=== PATIENT | female | born 1955 | race Caucasian/White ===

== ENCOUNTER 2024-11-28 12:26 | Emergency (ER) | payer MEDICARE, MEDICAID ==
[~2024-11-28] VITALS: Ht 175.3 cm; Wt 73.0 kg
[2024-11-28 12:48] VITALS: TEMP 37.1; O2SAT 99
[2024-11-28] MEDS ORDERED: LIDOCAINE HCL/EPINEPHRINE 1%-EPI 1:100,000 10ML VIAL INFIL ONE (13:30)
[2024-11-28] MEDS: HYDROCODONE/ACETAMINOPHEN 10/325MG TABLET PO ONE (14:06)
[2024-11-28 17:43] VITALS: BP 155/88; PULSE 100; RESP 18; O2SAT 97
== END 2024-11-28 17:50 | disposition home or self-care (01) ==
LOC: ER 12:26
DX: S01.111A Laceration without foreign body of right eyelid and periocular area, initial encounter (principal); S01.81XA Laceration without foreign body of other part of head, initial encounter; S06.0XAA Concussion with loss of consciousness status unknown, initial encounter; M41.9 Scoliosis, unspecified; E78.00 Pure hypercholesterolemia, unspecified; Z98.890 Other specified postprocedural states; Z88.0 Allergy status to penicillin; W01.0XXA Fall on same level from slipping, tripping and stumbling without subsequent striking against object, initial encounter; Y93.89 Activity, other specified; Y92.89 Other specified places as the place of occurrence of the external cause; Y99.8 Other external cause status
CPT/HCPCS: 12015; 99284